=== PATIENT | female | born 1995 | race Caucasian/White ===

== ENCOUNTER 2023-07-10 14:04 | Emergency (ER) | payer OTHER, SELFPAY ==
--- NOTE | 2023-07-10 14:49 | ED_ITS ---
HPI - General Adult General Chief complaint: General Medical Stated complaint: Not feeling well - irregular BP Time Seen by Provider: 07/10/23 17:45 Source: patient Mode of arrival: ambulatory History of Present Illness HPI narrative: 28F, T1DM, presents with hx anxiety and reports chills, elevated BP, tachycardia, spacey feeling that started 1315, and reports daughter being COVID positive last week. Related Data Previous Rx's Medication Instructions Recorded hydroxyzine HCl 25 mg tablet 25 mg PO BID PRN anxiety #7 tabs 07/10/23 ondansetron 4 mg disintegrating 4 mg PO Q8H PRN nausea and 07/10/23 tablet vomiting 4 days #7 tabs Allergies Allergy/AdvReac Type Severity Reaction Status Date / Time No Known Allergies Allergy Verified 07/10/23 14:49 Review of Systems 2 Review of Systems: Pertinent positives and negatives as stated in HPI [facility] Past Medical History Source: nursing notes reviewed Social History Social History Advance Directives: No Advance Directives Information Provided: No Physical Exam ED Vital Signs: Vital Signs - 24 hr 07/10/23 14:50 07/10/23 19:10 Temperature 98.7 F 98.3 F Pulse Rate 92 85 Respiratory Rate 18 18 Blood Pressure 122/71 111/68 Pulse Oximetry 99 99 Oxygen Delivery Method Nasal Cannula Room Air BMI result Body Mass Index 24.9 VITAL SIGNS: Reviewed. GENERAL: Well developed, well nourished, in no acute distress. HEAD: Normocephalic/atraumatic EYES: PERRLA, EOMI EARS: Ext canals without abnormality, TMs non-bulging and non-erythematous NOSE: Nares patent bilateral OROPHARYNX: no oral lesions noted, posterior pharynx clear and non-erythematous without noted tonsillar enlargement/erythema/exudates NECK: Supple, no adenopathy LUNGS: Normal breath sounds. No adventitious sounds or accessory muscle use. SpO2<99> CARDIOVASCULAR: Regular rate and rhythm without noted murmurs ABDOMEN: Soft, non-tender, non-distended with bowel sounds. MUSCULOSKELETAL: No tenderness, deformities, or effusions noted on gross inspection. EXTREMITIES: No cyanosis, clubbing or edema. SKIN: Inspection of the skin reveals no rashes NEUROLOGIC: Alert and oriented x 4. Strength and sensation to light touch were grossly intact x 4. Course Course Course Narrative: RME:?28 yo female hx of T2DM, admits to feeling hot/ cold while sitting at her desk around 1330. states her bp was all over the place, first at 143/71, then 112/70. tested negative for covid at home. BS typically 150/200. BS in triage 204. well appaering, vitals stable labs, serology ordered Full HPI, ROS and PE to be performed by the primary ED provider. Medications Administered Discontinued Medications Generic Name Dose Route Start Last Admin Trade Name Cristo PRN Reason Stop Dose Admin Hydroxyzine HCl 25 mg 07/10/23 18:08 07/10/23 18:26 Hydroxyzine Hcl 25 Mg Tablet PO 07/10/23 18:09 25 mg ONCE ONE Administration Ondansetron HCl 4 mg 07/10/23 18:08 07/10/23 18:26 Ondansetron Odt 4 Mg Tab.Rapdis TRANSLINGU 07/10/23 18:09 4 mg ONCE ONE Administration Medical Decision Making Medical Decision Making [facility] Narrative: 28-year-old female with history and clinical presentation, DDX: viral illness, anxiety, UTI I reviewed all investigations and hematologic indices are negative for leukocytosis and there is no anemia or thrombocytopenia. Chemistry indices do not demonstrated in SUZI and there is no electrolyte derangements and beta hCG his undetectable. Viral testing is negative for COVID-19/influenza. Patient was provided with translate inguinal Zofran and then given a dose of hydroxyzine and on re-evaluation states that she is feeling better and is requesting to be discharged. Differential Diagnosis Differential Diagnoses: The differential diagnosis associated with the presentation includes Please see the discussion above Admission/Observation Consideration of admission/observation: Escalation of care including admission/observation considered Please see the discussion above Lab Data [facility] Lab Attestation statement: I reviewed the patient's lab results. Please see the discussion above 07/10/23 16:39 07/10/23 16:39 Labs: Lab Results 07/10/23 07/10/23 Range/Units 16:39 16:40 WBC 10.3 (4.8-10.8) X10*3/uL RBC 4.53 (4.20-5.50) X10*6/uL Hgb 13.6 (12.0-16.0) g/dl Hct 38.0 (37.0-47.0) % MCV 83.9 (80.0-98.0) fL MCH 30.0 (27.0-33.0) pg MCHC 35.8 H (31.0-35.0) g/dl RDW 11.8 (11.0-16.0) % Plt Count 286 (160-400) X10*3/uL MPV 9.4 (9.4-12.3) fL Immature Gran % (Auto) 0.3 (0.0-0.4) % Neut % (Auto) 80.2 H (45-73) % Lymph % (Auto) 14.6 L (20-40) % Terry % (Auto) 4.6 (2-11) % Eos % (Auto) 0.1 (0-4) % Baso % (Auto) 0.2 (0-2) % Lymph # (Auto) 1.5 (1.2-4.9) X10*3/uL Terry # (Auto) 0.5 (0.1-1.2) X10*3/uL Eos # (Auto) 0.0 (0.0-0.4) X10*3/uL Baso # (Auto) 0.0 (0.0-0.2) X10*3/uL Abs Immat Gran (auto) 0.03 (0.00-0.03) X10*3/uL Absolute Neuts (auto) 8.3 (2.0-8.3) x10*3/uL Absolute Nucleated RBC 0.000 (0.0-0.012) X10*3/uL Nucleated RBC % (auto) 0.0 (0.0-0.2) /100WBC Sodium 140 (135-145) mmol/L Potassium 3.8 (3.3-5.1) mmol/L Chloride 109 H (96-108) mmol/L Carbon Dioxide 22 (22-29) mmol/L Anion Gap 13 (12-20) BUN 10 (9-16) mg/dL Creatinine 0.87 (0.5-1.4) mg/dL Estim Creat Clear Calc 82.4 Estimated GFR > 60 Random Glucose 158 H (60-115) mg/dL Calcium 9.6 (8.4-10.2) mg/dL Magnesium 2.1 (1.6-2.6) mg/dL Lipase 16 (8-78) U/L Beta HCG, Quant < 2 mIU/mL COVID-19 ([facility]) Negative (Negative) COVID-19 Clin Com See Note Influenza Type A (NAVID) Negative (Negative) Influenza Type B (NAVID) Negative (Negative) Influenza A & B Note See Note Discharge Plan Discharge Clinical Impression: Feeling unwell, Viral syndrome Patient Disposition: Home, Self-Care Instructions: Viral Syndrome (ED) Additional Instructions: 1. Resume all home medications as prescribed. 2. I have sent a prescription for antinausea medication as well as some of the anti anxiety medication as well. 3. Please follow-up with your primary care doctor. Return to the emergency room should you experience any worsening symptoms. Prescriptions: New ondansetron 4 mg tablet,disintegrating 4 mg PO Q8H PRN (Reason: nausea and vomiting) 4 Days Qty: 7 0RF hydroxyzine HCl 25 mg tablet 25 mg PO BID PRN (Reason: anxiety) Qty: 7 0RF Stand Alone Forms: Work/School Release Interventions: ED Discharge Assessment Last Done: 07/10/23 19:21
[2023-07-10 14:50] VITALS: BP 122/71; PULSE 92; RESP 18; TEMP 37.1; O2SAT 99; BMI 24.9
[2023-07-10 16:44] LABS: MANUAL DIFF FLAG NO
[2023-07-10 16:50] LABS: Basophils Percent Auto 0.2 % (0-2); Eosinophils Percent Auto 0.1 % (0-4); Hemoglobin 13.6 g/dl (12.0-16.0); Imm Gran Abs Auto 0.03 X10*3/uL (0.00-0.03); Imm Gran Pct Auto 0.3 % (0.0-0.4); Lymphocytes Absolute Auto 1.5 X10*3/uL (1.2-4.9); Lymphocytes Percent Auto 14.6 % (20-40); Mean Corpuscular HGB Conc 35.8 g/dl (31.0-35.0); Mean Corpuscular Volume 83.9 fL (80.0-98.0); Mean Platelet Volume 9.4 fL (9.4-12.3); Monocytes Absolute Auto 0.5 X10*3/uL (0.1-1.2); Monocytes Percent Auto 4.6 % (2-11); Neutrophils Absolute Auto 8.3 x10*3/uL (2.0-8.3); Neutrophils Percent Auto 80.2 % (45-73); Platelet Count 286 X10*3/uL (160-400); Red Blood Count 4.53 X10*6/uL (4.20-5.50); Red Cell Distribution Width 11.8 % (11.0-16.0); White Blood Count 10.3 X10*3/uL (4.8-10.8)
[2023-07-10 16:58] LABS: Anion Gap 13 (12-20); Blood Urea Nitrogen 10 mg/dL (9-16); Calcium 9.6 mg/dL (8.4-10.2); Carbon Dioxide 22 mmol/L (22-29); Chloride 109 mmol/L (96-108); Creatinine Clr Calc Pharmacy 82.4; Estimated Glomerular Filt Rate > 60; Glucose Random 158 mg/dL (60-115); Lipase 16 U/L (8-78); Magnesium 2.1 mg/dL (1.6-2.6); Potassium 3.8 mmol/L (3.3-5.1); Sodium 140 mmol/L (135-145)
[2023-07-10 17:01] LABS: IDNOW Serial# 08D9AD1C
[2023-07-10 17:02] LABS: Influenza A Negative (Negative); Influenza B2 Negative (Negative)
[2023-07-10 17:04] LABS: COVID-19 Test Negative (Negative); IDNOW Serial# 152EDE1D
[2023-07-10] MEDS: hydrOXYzine HCL 25 MG TABLET PO (18:26)
[2023-07-10] MEDS: Ondansetron ODT 4 MG TAB.RAPDIS TRANSLINGU (18:26)
[2023-07-10 19:10] VITALS: BP 111/68; PULSE 85; RESP 18; TEMP 36.8; O2SAT 99
[2023-07-10 19:20] LABS: HCG Quantitative < 2 mIU/mL
[2023-07-10 19:29] LABS: Appearance Urine Cloudy; Color Urine Yellow; Glucose Urine UA Negative (Negative); Leukocyte Esterase Urine Negative (Negative); Nitrite Urine Negative (Negative); PH 7.5 (5.0-9.0); UMIC TRIGGER UACC YES; Urine Blood Trace (Negative); Urine Ketones Trace mg/dL (Negative); Urine Protein Negative (Neg-Trace)
[2023-07-10 19:31] LABS: Bacteria Urine 4+ (None Seen); Hyaline Casts Urine 0-2 /LPF (0-2); RBC Urine 0-2 /HPF (0-2); WBC Urine 0-5 /HPF (0-5)
== END 2023-07-10 19:23 | disposition home or self-care (01) ==
PROVIDERS: Physician Assistant Medical; Emergency Provider Student in an Organized Health Care Education/Training Program
DX: B34.9 Viral infection, unspecified (principal); R68.83 Chills (without fever); Z11.52 Encounter for screening for COVID-19; E11.9 Type 2 diabetes mellitus without complications
CPT/HCPCS: 36415; 80048; 81001; 83690; 83735; 84702; 85025; 87502; 87635; 99283